=== PATIENT | female | born 1950 | race Caucasian/White ===

== ENCOUNTER → 2018-12-18 | Outpatient (CLI) | payer MEDICARE ==
--- NOTE | 2018-12-18 14:47 | RADIOLOGY REPORT (SQ) ---
EXAM DESCRIPTION: CT HEAD WITHOUT COMPLETED DATE/TIME: 12/18/2018 2:32 pm REASON FOR STUDY: FALL WITH CONTUSION LEFT ANGLICAN (S09.90XA) S09.90XA UNSPECIFIED INJURY OF HEAD, I NITIAL ENCOUNTER COMPARISON: None. TECHNIQUE: Axial images acquired through the brain without intravenous contrast. Images reviewed wi th bone, brain and subdural windows. Additional sagittal and coronal reconstructions were generated. Images stored on PACS. All CT scanners at this facility use dose modulation, iterative reconstruction, and/or weight based d osing when appropriate to reduce radiation dose to as low as reasonably achievable (ALARA). [facility]: Dose Right [facility]: CareDose [facility]: Dose Right [facility]: Teradose 4D [facility]: Quizrr RADIATION DOSE: CT Rad equipment meets quality standard of care and radiation dose reduction techniq ues were employed. CTDIvol: 53.2 mGy. DLP: 991 mGy-cm. mGy. LIMITATIONS: None. FINDINGS: VENTRICLES: Normal size and contour. CEREBRUM: No masses. No hemorrhage. No midline shift. No evidence for acute infarction. Normal gra y/white matter differentiation. No areas of low density in the white matter. CEREBELLUM: No masses. No hemorrhage. No alteration of density. No evidence for acute infarction. EXTRAAXIAL SPACES: No fluid collections. No masses. ORBITS AND GLOBE: No intra- or extraconal masses. Normal contour of globe without masses. CALVARIUM: No fracture. PARANASAL SINUSES: No fluid or mucosal thickening. SOFT TISSUES: No mass or hematoma. OTHER: No other significant finding. IMPRESSION: NORMAL BRAIN CT WITHOUT CONTRAST. EVIDENCE OF ACUTE STROKE: NO. COMMENT: Quality ID # [id number]: Final reports with documentation of one or more dose reduction techniques (e.g., Automated exposure control, adjustment of the mA and/or kV according to patient size, use of iterative reconstruction technique) TECHNICAL DOCUMENTATION: JOB ID: [id number] [employer]- All Rights Reserved Reading location - IP/workstation name: [email or web address]
== END ==
LOC: RAD 14:10
PROVIDERS: ATTEND Family Medicine
DX: S09.90XA Unspecified injury of head, initial encounter (principal); X58.XXXA Exposure to other specified factors, initial encounter; Y93.9 Activity, unspecified; Y92.9 Unspecified place or not applicable
CPT/HCPCS: 70450

== ENCOUNTER 2019-04-08 16:54 | Emergency (ER) | payer MEDICARE ==
--- NOTE | 2019-04-08 17:13 | ER Document Report ---
ED Medical Screen (RME) - General Chief Complaint: Chest Pain Stated Complaint: CHEST PAIN Time Seen by Provider: 04/08/19 17:07 Primary Care Provider: SHANTELL MARION DO [Primary Care Provider] - Follow up as needed Mode of Arrival: Ambulatory Information source: Patient Notes: This 69-year-old female with history of hypertension and high cholesterol presents to the emergency department with reports of right-sided rib pain. Patient reports on Saturday she fell back against a dresser and hurt her back. She reports she immediately started having pain on the right lateral anterior chest wall. Reports pain with movement. Denies fever vomiting diarrhea. Reports she is took and Motrin without relief of symptoms. I have greeted and performed a rapid initial assessment of this patient. A comprehensive ED assessment and evaluation of the patient, analysis of test results and completion of the medical decision making process will be conducted by additional ED providers. Dictation of this chart was performed using voice recognition software; therefore, there may be some unintended grammatical errors. TRAVEL OUTSIDE OF THE [place] IN LAST 30 DAYS: No Doctor's Discharge - Discharge Referrals: SHANTELL MARION DO [Primary Care Provider] - Follow up as needed
--- NOTE | 2019-04-08 17:53 | RADIOLOGY REPORT (SQ) ---
EXAM DESCRIPTION: RIBS RIGHT W/PA CHEST COMPLETED DATE/TIME: 04/08/2019 5:24 pm REASON FOR STUDY: rib pain post fall COMPARISON: None. TECHNIQUE: Frontal view of the chest and additional views of the right ribs acquired. NUMBER OF VIEWS: Three views LIMITATIONS: None. FINDINGS: FRONTAL CXR: Small right pleural effusion. RIBS: There are fractures of the right 6th, 7th, and 8th ribs seen best on an oblique view. OTHER: No other significant finding. IMPRESSION: Fractured right 6th, 7th, and 8th ribs. There is a small effusion on the right, questio n hemothorax. COMMENT: SITE OF TRAUMA/COMPLAINT MARKED/STAMP COMPLETED: No TECHNICAL DOCUMENTATION: JOB ID: [id number] [employer]- All Rights Reserved Reading location - IP/workstation name: [email or web address]
[2019-04-08] MEDS ORDERED: MORPHINE SULFATE 10 MG/ML INJ IM ONE ×2 (18:17→18:20)
--- NOTE | 2019-04-08 18:29 | ER Document Report ---
ED Medical Screen (RME) - General Chief Complaint: Chest Pain Stated Complaint: CHEST PAIN Time Seen by Provider: 04/08/19 17:07 Primary Care Provider: SHANTELL MARION DO [Primary Care Provider] - Follow up as needed Mode of Arrival: Ambulatory Notes: 69-year-old female with history of hypertension and high cholesterol presents to the emergency department with reports of right-sided rib pain. Patient reports on Saturday she fell back against a dresser and hurt her back. She reports she immediately started having pain on the right lateral anterior chest wall. Reports pain with movement. Denies, fever, vomiting, diarrhea. Reports she is took and Motrin without relief of symptoms. TRAVEL OUTSIDE OF THE [place] IN LAST 30 DAYS: No - Related Data Allergies/Adverse Reactions: codeine Allergy (Verified 04/08/19 17:19) Tetracyclines Allergy (Verified 04/08/19 17:19) Past Medical History - Social History Chew tobacco use (# tins/day): No Frequency of alcohol use: Occasional Drug Abuse: None - Past Medical History Cardiac Medical History: Reports: Hx Hypercholesterolemia, Hx Hypertension Pulmonary Medical History: Reports: Hx COPD Musculoskeltal Medical History: Reports Hx Arthritis Past Surgical History: Reports: Hx Orthopedic Surgery, Hx Tonsillectomy Review of Systems - Review of Systems Constitutional: See HPI EENT: No symptoms reported Cardiovascular: See HPI Respiratory: See HPI Gastrointestinal: No symptoms reported Genitourinary: No symptoms reported Female Genitourinary: No symptoms reported Musculoskeletal: See HPI Skin: No symptoms reported Hematologic/Lymphatic: No symptoms reported Neurological/Psychological: No symptoms reported Physical Exam - Notes Notes: PHYSICAL EXAMINATION: Reviewed vital signs and charting by RN GENERAL: Alert, interacts well. No acute distress. HEAD: Normocephalic, atraumatic. EYES: Pupils equal and round. Extraocular movements intact. ENT: Oral mucosa moist, tongue midline. NECK: Full range of motion. Trachea midline. no bony midline tenderness LUNGS: Clear to auscultation bilaterally, no wheezes, rales, or rhonchi. No respiratory distress. CHEST: acute TTP R flank in area of reported trauma HEART: Regular rate and rhythm. No murmur ABDOMEN: soft, non-tender. No distention. Bowel sounds present EXTREMITIES: Moves all 4 extremities spontaneously. No edema, No cyanosis. PSYCH: Normal affect, normal mood. SKIN: Warm, dry, normal turgor. No rashes or lesions noted. Course - Re-evaluation Re-evalutation: 04/08/19 18:26 Patient presents in acute pain. She does have fractures of the lateral sixth, seventh, eighth ribs on the right side. Radiology report a small pleural effusion. EKG showed a sinus rhythm with a rate of 80, no ST segment elevations or depressions, no T wave inversions, QTC 434. Briefly discussed the case with Dr. Shaikh who recommends we get basic blood work and provide adequate analgesia. We will also provide incentive spirometry. 04/08/19 18:30 04/08/19 19:08 Lab work all within normal limits. I reiterated patient instructions and use of incentive spirometry. She is stable for discharge. - Laboratory Result Diagrams: 04/08/19 18:20 04/08/19 18:20 Laboratory results interpreted by me: 04/08/19 18:20 [facility] 33.6 H Doctor's Discharge - Discharge Clinical Impression: Rib fracture Qualifiers: Encounter type: initial encounter Rib fracture type: multiple ribs Fracture type: closed Laterality: right Qualified Code(s): S22.41XA - Multiple fractures of ribs, right side, initial encounter for closed fracture Condition: Good Disposition: HOME, SELF-CARE Additional Instructions: Your chest wall pain is due to your sixth, seventh, and eighth ribs on your right side sustaining a fracture from your fall. This pain can last for up to 6 weeks. It is very important that you continue to take purposeful deep breaths. For your pain: Take ibuprofen 600 mg every 6 hours or Tylenol 1000 mg every 6 hours. Apply local lidocaine to the area per bottle instructions. There is a product sold [id number] called "Aspercreme with lidocaine" that you can use for this purpose. Please follow-up with your primary care doctor in the next 2-3 days. Return to the emergency department immediately if you develop worsening shortness of breath, increased pain, begin coughing blood, pass out, or have any other symptoms that are worrisome to you. Referrals: SHANTELL MARION DO [Primary Care Provider] - Follow up as needed
[2019-04-08] MEDS ORDERED: LIDOCAINE 5% (700 MG) TRANSDERMAL ADH..PATCH TP ONE (18:30)
[2019-04-08 18:33] LABS: ABSOLUTE BASOPHILS # (AUTO) 0.1 10^3/uL (0.0-0.2); ABSOLUTE EOSINOPHILS # (AUTO) 0.1 10^3/uL (0.0-0.6); ABSOLUTE LYMPHOCYTES (AUTO) 1.8 10^3/uL (0.5-4.7); ABSOLUTE MONOCYTES (AUTO) 0.7 10^3/uL (0.1-1.4); ABSOLUTE NEUT (AUTO) 6.9 10^3/uL (1.7-8.2); BASOPHILS % (AUTO) 0.8 % (0-2); EOSINOPHILS % (AUTO) 1.6 % (0-6); HEMATOCRIT 44.4 % (36.0-47.0); HEMOGLOBIN 15.3 g/dL (12.0-15.5); LYMPHOCYTES % (AUTO) 18.4 % (13-45); MEAN CORPUSCULAR HEMOGLOBIN 33.6 pg (27.0-33.4); MEAN CORPUSCULAR HGB CONC 34.5 g/dL (32.0-36.0); MEAN CORPUSCULAR VOLUME 97 fl (80-97); MONOCYTES % (AUTO) 6.9 % (3-13); PLATELET COUNT 289 10^3/uL (150-450); RED BLOOD COUNT 4.56 10^6/uL (3.72-5.28); SEGMENTED NEUTROPHILS % (AUTO) 72.3 % (42-78); TOTAL CELLS COUNTED % (AUTO) 100 %; WHITE BLOOD COUNT 9.5 10^3/uL (4.0-10.5)
[2019-04-08 19:03] LABS: ALBUMIN 4.1 g/dL (3.5-5.0); ALKALINE PHOSPHATASE 114 U/L (38-126); ANION GAP 9 (5-19); ASPARTATE AMINO TRANSFERASE 26 U/L (14-36); BILIRUBIN,DIRECT 0.1 mg/dL (0.0-0.4); BILIRUBIN,TOTAL 0.6 mg/dL (0.2-1.3); BLOOD UREA NITROGEN 12 mg/dL (7-20); CALCIUM 9.9 mg/dL (8.4-10.2); CARBON DIOXIDE 28 mmol/L (22-30); CHLORIDE 101 mmol/L (98-107); GLUCOSE 97 mg/dL (75-110); POTASSIUM 3.9 mmol/L (3.6-5.0)
[2019-04-08] MEDS ORDERED: HYDROCODONE/ACETAMINOPHEN 5-325 MG (6 TAB/ER DISP) PO PRN (19:09)
[2019-04-08] MEDS ORDERED: HYDROCODONE/ACETAMINOPHEN 10-325 MG TABLET PO ONE (19:24)
[2019-04-08 19:45] VITALS: BP 188/81
--- NOTE | 2019-04-08 23:30 | EKG REPORT ---
SEVERITY:- NORMAL ECG - SINUS RHYTHM : Confirmed by: Radha Tomlin MD 08-Apr-2019 23:29:38
== END 2019-04-08 19:37 | disposition home or self-care (01) ==
LOC: ER 16:54
DX: S22.41XA Multiple fractures of ribs, right side, initial encounter for closed fracture (principal); R07.9 Chest pain, unspecified; R07.81 Pleurodynia; R07.89 Other chest pain; W22.03XA Walked into furniture, initial encounter; Z79.899 Other long term (current) drug therapy; I10 Essential (primary) hypertension
CPT/HCPCS: 93005; 36415; 85025; 80053; 71101; 93010; J2270; A9270 ×3